=== PATIENT | male | born 1935 | race Caucasian/White ===

== ENCOUNTER → 2017-02-18 | Outpatient (CLI) | payer MEDICARE, BC ==
[~2017-02-18] MED LIST: ASPIRIN 81MG TA81 MG PO; GLUCOSAMINE & C1 CA1 PO; HYDROCODONE-APA1 TA1 PO; LISINOPRIL20 MG PO; LORTAB 5/500 501 TAB PO; NEXIUM40 MG PO; PRAVASTATIN 20M20 MG PO; RAMIPRIL 10MG C10 MG PO
--- NOTE | 2017-02-18 12:13 | ST MODIFIED BARIUM SWALLOW ---
SUBJECTIVE-DYSPHAGIA Date: 02/18/17 Time: 1100 Eval Type: Initial Certification - Admitted Date: Primary Diagnosis: Reason for Consult: Dysphagia; Possible upgrade in diet; Pt/Caregiver Concerns: Pt. and his girlfriend report that he has been receiving speech therapy for feeding and swallowing; doing better; hope to upgrade diet; Onset of symptoms- Symptoms have worsened? no improved? no resolved? no since onset. Current Diet: puree meat, soft vegetables and nectar thickened liquids Allergies Coded Allergies: No Known Allergies (01/06/16) Home Medications Active Scripts HYDROCODONE 5MG/APAP 325MG (Hydrocodon-Acetaminophen 5-325) 1 TAB PO Q6HP PRN pain #10 TAB Prov: 01/06/16 Reported Medications Lisinopril 20 MG PO DAILY #90 Pravastatin Sodium (Pravastatin 20MG) 20 MG PO DAILY ASPIRIN (Aspirin) 81 MG PO QHS Esomeprazole Magnesium (Nexium 40MG Cap) 40 MG PO DAILY GLUC MEDRANO DIPO CH/VIPIN MEDRANO/C/TORY (Glucosamine-Chondroitin Capsul) 1 CAP PO DAILY Is this assessment r/t stroke? No OBJECTIVE COMMUNICATION/COGNITION Barriers to communication/cog? No ORAL-MOTOR STRUCTURE/FUNCTION Structure/Function WFL: Labial, Buccal, Lingual, Velar, Mandibular, Other. Facial Asymmetry None Laryngeal Function Strong: Voluntary Cough, Throat Clearing. Vocal Quality Normal Dentition Good dentition RESPIRATORY STATUS/HISTORY Is resp status/hx a concern? Yes Requires Oxygen: Cannula Breathes from mouth? No Risk-fatigue due to comp.resp? Yes DYSPHAGIA SIGNS W/CONSISTENCY Any S/S of Dysphagia? No VIDEO SWALLOW REPORT Radiologist: Cuauhtemoc WATSON,Leoncio Hsu Level of consciousness: Alert Position (degrees): 90 ORAL STAGE Consistencies used for study: Thin, [place], Pudding, Pureed, Mechanical Soft, Solid, Pill - WFL: Bolus Formation:, Initiation of Swallow:. - No: Abdiel.spilled into pharynx, Oral Residue. PHARYNGEAL STAGE Consistencies used for study: Thin, [place], Pudding, Pureed, Mechanical Soft, Solid, Pill Delayed Swallow Reflex? No Epiglottic Closure WFL Penetration-Laryngeal Vestibul No - Aspiration? No Pharyngeal Residue? Yes (minimal with pudding) ASSESSMENT/PLAN ASSESSMENT Impression Mr. Lloyd, an 81 year old male, was seen today in radiology for a MBS. He was alert and oriented and was accompanied by his girlfriend. She and Mr. Lloyd reported past medical history and what lead to the MBS being completed today. Mr. Lloyd reported he fell from a tractor and was hospitalized at [facility]. He had a tracheostomy and a g tube was placed. He received Speech Therapy at , and then rehabilitation services at [facility] and has been seeing a home health therapist for swallowing therapy since being at home. His current diet is pureed meats, soft cooked vegetables and nectar thickened liquids from a cup (no straws). Pt. reports that nothing but water has been introduced via his g tube since January 30, 2017 and he has had no pneumonia or significant weight loss. Mr. Lloyd wears oxygen via cannula 24 hours / day. He reports he does fatigue when eating, but will eat slowly and wait until he feels rested before starting again. The following consistencies were presented today: nectar thick liquids, thin liquids, puree (applesauce), pudding, soft solids, solids and a pill. No aspiration on any consistency was observed. Minimal pharyngeal residue was noted with pudding, but cleared easily with a thin liquid rinse. Mr. Lloyd chewed throughly and slowly. Managed cup drinking well. No coughing or thoat clearing was noted. Reccommentations based on this MBS: Diet may be upgraded to include thin liquids and regular/soft solid foods as tolerated. Follow with a thin liquid rinse if needed. Upright for meals and for 30 minutes following meals. Eat slowly and take breaks as needed to reduce fatigue. Thank you for this referral. PLAN RECOMMENDATIONS Further skill serv. indicated No SWALLOW GUIDELINES Standard Aspiration Prec., Alt Bite w/Sip Thru Meal PATIENT/CAREGIVER EDUCATION Able-recall/restate what told? Yes Reinforcement needed? No Rehab Medicare G Code Plan Medicare/G Code eligible? Yes Therapy Discipline Plan: MERCANTILE AGENT PLAN OF CARE Recommendation for therapy: Outpatient MERCANTILE AGENT (with current therapist) Comment: Home Health MERCANTILE AGENT to follow to upgrade diet and assess progre G Code Current Status: SWALLOWING (G8996) Current Status Modifier: 1%-19% IMPAIRED (CI) G Code Goal Status: SWALLOWING (G8997) Goal Status Modifier: 1%-19% IMPAIRED (CI) G Code Discharge Status: SWALLOWING (G8998) Discharge Status Modifier: 1%-19% IMPAIRED (CI) If pt's MCR benefits exhausted If patient's Medicare benefits are exhausted, please review: #Min Spent: 30 at 1216
--- NOTE | 2017-02-18 12:13 | ST MODIFIED BARIUM SWALLOW ---
SUBJECTIVE-DYSPHAGIA Date: 02/18/17 Time: 1100 Eval Type: Initial Certification - Admitted Date: Primary Diagnosis: Reason for Consult: Dysphagia; Possible upgrade in diet; Pt/Caregiver Concerns: Pt. and his girlfriend report that he has been receiving speech therapy for feeding and swallowing; doing better; hope to upgrade diet; Onset of symptoms- Symptoms have worsened? no improved? no resolved? no since onset. Current Diet: puree meat, soft vegetables and nectar thickened liquids Allergies Coded Allergies: No Known Allergies (01/06/16) Home Medications Active Scripts HYDROCODONE 5MG/APAP 325MG (Hydrocodon-Acetaminophen 5-325) 1 TAB PO Q6HP PRN pain #10 TAB Prov: 01/06/16 Reported Medications Lisinopril 20 MG PO DAILY #90 Pravastatin Sodium (Pravastatin 20MG) 20 MG PO DAILY ASPIRIN (Aspirin) 81 MG PO QHS Esomeprazole Magnesium (Nexium 40MG Cap) 40 MG PO DAILY GLUC MEDRANO DIPO CH/VIPIN MEDRANO/C/TORY (Glucosamine-Chondroitin Capsul) 1 CAP PO DAILY Is this assessment r/t stroke? No OBJECTIVE COMMUNICATION/COGNITION Barriers to communication/cog? No ORAL-MOTOR STRUCTURE/FUNCTION Structure/Function WFL: Labial, Buccal, Lingual, Velar, Mandibular, Other. Facial Asymmetry None Laryngeal Function Strong: Voluntary Cough, Throat Clearing. Vocal Quality Normal Dentition Good dentition RESPIRATORY STATUS/HISTORY Is resp status/hx a concern? Yes Requires Oxygen: Cannula Breathes from mouth? No Risk-fatigue due to comp.resp? Yes DYSPHAGIA SIGNS W/CONSISTENCY Any S/S of Dysphagia? No VIDEO SWALLOW REPORT Radiologist: Cuauhtemoc WATSON,Leoncio Hsu Level of consciousness: Alert Position (degrees): 90 ORAL STAGE Consistencies used for study: Thin, [place], Pudding, Pureed, Mechanical Soft, Solid, Pill - WFL: Bolus Formation:, Initiation of Swallow:. - No: Abdiel.spilled into pharynx, Oral Residue. PHARYNGEAL STAGE Consistencies used for study: Thin, [place], Pudding, Pureed, Mechanical Soft, Solid, Pill Delayed Swallow Reflex? No Epiglottic Closure WFL Penetration-Laryngeal Vestibul No - Aspiration? No Pharyngeal Residue? Yes (minimal with pudding) ASSESSMENT/PLAN ASSESSMENT Impression Mr. Lloyd, an 81 year old male, was seen today in radiology for a MBS. He was alert and oriented and was accompanied by his girlfriend. She and Mr. Lloyd reported past medical history and what lead to the MBS being completed today. Mr. Lloyd reported he fell from a tractor and was hospitalized at [facility]. He had a tracheostomy and a g tube was placed. He received Speech Therapy at , and then rehabilitation services at [facility] and has been seeing a home health therapist for swallowing therapy since being at home. His current diet is pureed meats, soft cooked vegetables and nectar thickened liquids from a cup (no straws). Pt. reports that nothing but water has been introduced via his g tube since January 30, 2017 and he has had no pneumonia or significant weight loss. Mr. Lloyd wears oxygen via cannula 24 hours / day. He reports he does fatigue when eating, but will eat slowly and wait until he feels rested before starting again. The following consistencies were presented today: nectar thick liquids, thin liquids, puree (applesauce), pudding, soft solids, solids and a pill. No aspiration on any consistency was observed. Minimal pharyngeal residue was noted with pudding, but cleared easily with a thin liquid rinse. Mr. Lloyd chewed throughly and slowly. Managed cup drinking well. No coughing or thoat clearing was noted. Reccommentations based on this MBS: Diet may be upgraded to include thin liquids and regular/soft solid foods as tolerated. Follow with a thin liquid rinse if needed. Upright for meals and for 30 minutes following meals. Eat slowly and take breaks as needed to reduce fatigue. Thank you for this referral. PLAN RECOMMENDATIONS Further skill serv. indicated No SWALLOW GUIDELINES Standard Aspiration Prec., Alt Bite w/Sip Thru Meal PATIENT/CAREGIVER EDUCATION Able-recall/restate what told? Yes Reinforcement needed? No Rehab Medicare G Code Plan Medicare/G Code eligible? Yes Therapy Discipline Plan: BUILDING CONSTRUCTION SUPERINTENDENT PLAN OF CARE Recommendation for therapy: Outpatient BUILDING CONSTRUCTION SUPERINTENDENT (with current therapist) Comment: Home Health BUILDING CONSTRUCTION SUPERINTENDENT to follow to upgrade diet and assess progre G Code Current Status: SWALLOWING (G8996) Current Status Modifier: 1%-19% IMPAIRED (CI) G Code Goal Status: SWALLOWING (G8997) Goal Status Modifier: 1%-19% IMPAIRED (CI) G Code Discharge Status: SWALLOWING (G8998) Discharge Status Modifier: 1%-19% IMPAIRED (CI) If pt's MCR benefits exhausted If patient's Medicare benefits are exhausted, please review: #Min Spent: 30 at 1218
--- NOTE | 2017-02-18 13:16 | RADIOLOGY REPORT PS360 ---
ESOPHAGUS W/CINERADIOGRAPHY: 02/18/2017 10:46 AM CLINICAL HISTORY: Dysphasia, tracheostomy, feeding tube in place ORDERING PHYSICIAN: Corbin Rider MD PATIENT AGE: 81 years COMPARISON: None. TECHNIQUE: Patient administered varying consistencies of barium contrast, while viewed in lateral position under real-time fluoroscopy with cine recording. FLUOROSCOPY TIME: 2 minutes and 25 seconds The study was performed in conjunction with speech pathologist. Please see that report & recommendations. FINDINGS: Patient was given varying consistencies of barium. This consisted of thin, nectar, pudding, puree, mechanical soft, solid, pill. No evidence of vestibular penetration or tracheal aspiration. There was some residual which was alleviated with thin wash IMPRESSION: Unremarkable modified barium swallow Please see speech pathologist report and recommendations.
== END ==
LOC: RAD 08:51
DX: R13.10 Dysphagia, unspecified (principal); Z87.09 Personal history of other diseases of the respiratory system
CPT/HCPCS: G8996; G8997; G8998